=== PATIENT | male | born 1950 | race Caucasian/White ===

== ENCOUNTER → 2020-11-30 12:37 | Outpatient (CLI) | payer MEDICARE, OTHER, SELFPAY ==
--- NOTE | 2020-11-30 12:39 | DI.CT.S_ITS ---
PROCEDURE: CT KIDNEY URETER BLADDER (KUB) INDICATIONS: Kidney stones TECHNIQUE: Noncontrast 5 mm thick sections acquired from the diaphragms to the symphysis. 5 mm thick coronal and sagittal reformats were then performed. For radiation dose reduction, the following was used: automated exposure control, adjustment of mA and/or kV according to patient size. COMPARISON: None. FINDINGS: Image quality: No focus Lung bases: Lung bases are clear. Heart size is normal. Coronary artery calcifications are present. Urinary system: Both kidneys are normal in size. Multiple bilateral sub 5 mm renal calculi. No hydronephrosis or perinephric fat stranding. Both ureters appear non-dilated throughout their expected courses. Bladder wall thickness is normal; no calcified bladder stones. Large left renal cyst. This measures approximately 6.8 cm. Subcentimeter hepatic foci are statistically cysts or hemangiomas, although technically too small to characterize accurately and therefore nonspecific. Gallbladder negative . Pancreas is normal in contours. Spleen is normal in size. No adrenal nodules. Peritoneum and bowel: Unenhanced bowel loops demonstrate normal wall thickness and caliber. No free fluid or air. Normal appendix. Nodes and vessels: No retroperitoneal or mesenteric adenopathy by size criteria. Aorta and inferior vena cava are normal in caliber. Abdominal wall: No ventral hernias. Pelvis: No free pelvic fluid. Fat containing right inguinal hernia. Bones: No suspicious bony lesions. No vertebral body compression fractures. Cortical and trabecular thickening involving the left bony hemipelvis, suggestive of Paget disease. IMPRESSION: Multiple sub 5 mm bilateral nephrolithiasis. No evidence of urinary obstruction. Prominent diffuse left bony hemipelvis cortical /trabecular thickening and sclerosis suggestive of Paget disease. Coronary artery disease Additional chronic and incidental findings as above. Dictated by: Berto Renteria M.D. on 11/30/2020 at 14:05 Approved by: Berto Renteria M.D. on 11/30/2020 at 14:36
== END ==
PROVIDERS: PCP Family Medicine; Referring Provider Specialist; Visit Provider Specialist
DX: N20.0 Calculus of kidney (principal); I25.10 Atherosclerotic heart disease of native coronary artery without angina pectoris; Z87.442 Personal history of urinary calculi
CPT/HCPCS: 74176